=== PATIENT | male | born 1955 | race Caucasian/White ===

== ENCOUNTER 2016-12-11 11:12 | Day surgery (SDC) | payer OTHER ==
[2016-12-11] MEDS ORDERED: LACTATED RINGERS 1,000 ML IV ONE (11:23)
[2016-12-11] MEDS ORDERED: MIDAZOLAM 2 MG/2 ML VIAL IVP ONE (13:00)
[2016-12-11] MEDS ORDERED: fentaNYL 100 MCG/2 ML VIAL IVP ONE (13:00)
[2016-12-11 13:41] VITALS: BP 122/67
--- NOTE | 2016-12-11 14:05 | PROCEDURE REPORT ---
DATE OF PROCEDURE: 12/11/2016 00:00:00 PROCEDURE PERFORMED: Colonoscopy with biopsy and snare. ENDOSCOPIST: Cathryn Bautista MD PRIMARY CARE: [facility]. INDICATION: History of colon polyps. PREMEDICATION: Fentanyl 100 mcg, Versed 5 mg IV titration. DESCRIPTION OF PROCEDURE: After informed consent was obtained, the patient was placed in the left lat eral decubitus position. The video colonoscope was introduced in the rectum and slowly advanced to th e cecum. On slow withdrawal, mucosa was carefully examined. Preparation was good. The scope was remov ed. The patient tolerated the procedure well. BLOOD LOSS: None. COMPLICATIONS: None. FINDINGS 1. A 5 mm sigmoid polyp, jumbo biopsied and removed completely. 2. An 8 mm rectal polyp, snared and removed completely. 3. Scattered sigmoid diverticulosis. 4. Otherwise negative colonoscopy to cecum. The patient will be contacted with biopsy results but will need followup colonoscopy in 5 years. JOB #: [id number] EXT JOB #:[id number]
== END 2016-12-11 11:13 | disposition home or self-care (01) ==
LOC: SDS 11:12
PROVIDERS: ATTEND Internal Medicine Gastroenterology
PROC: 0DBP8ZX Excision of Rectum, Via Natural or Artificial Opening Endoscopic, Diagnostic (ICD-10-PCS; 2016-12-11)
PROC: 0DBN8ZX Excision of Sigmoid Colon, Via Natural or Artificial Opening Endoscopic, Diagnostic (ICD-10-PCS; principal; 2016-12-11 12:30)
DX: K62.1 Rectal polyp (principal); K63.5 Polyp of colon; K57.90 Diverticulosis of intestine, part unspecified, without perforation or abscess without bleeding; E78.00 Pure hypercholesterolemia, unspecified; K21.9 Gastro-esophageal reflux disease without esophagitis
CPT/HCPCS: 45380; 45385; 88305; J7120

== ENCOUNTER 2017-06-30 09:42 | Day surgery (SDC) | payer OTHER ==
[~2017-06-30 09:42] MED LIST: DEXAMETHASONE 4 MG/ML VIAL IVP ONE; GLYCOPYRROLATE 1 MG/5 ML VIAL IVP ONE; KETOROLAC 30 MG/ML VIAL IVP ONE; LIDOCAINE-MPF 2% 5 ML VIAL IM ONE; MIDAZOLAM 2 MG/2 ML VIAL IVP ONE; NEOSTIGMINE 1 MG/1 ML 10 ML MDV IVP ONE; ONDANSETRON 4 MG/2 ML VIAL IVP ONE; PHENYLEPHRINE 50 MG/5 ML VIAL IV ONE; PROPOFOL 200 MG/20 ML VIAL IVP ONE; ROCURONIUM 50 MG/5 ML VIAL IVP ONE; SUCCINYLCHOLINE 200 MG/10 ML VIAL IVP ONE; ceFAZolin 2 GM/50 ML 2 GM/50 ML BAG IV ONE; ePHEDrine 50 MG/ML VIAL IVP ONE; fentaNYL 250 MCG/5 ML VIAL IVP ONE
[2017-06-30] MEDS ORDERED: BUPIVACAINE 0.5%-EPI 1:200000 PF 10 ML VIAL ONE ×2 (10:12→11:00)
[2017-06-30] MEDS ORDERED: LACTATED RINGERS 1,000 ML IV ONE ×2 (10:38→12:40)
[2017-06-30] MEDS ORDERED: BUPIVACAINE 0.5%-EPI 1:200000 PF 30 ML VIAL SUBQ ONE (11:26)
--- NOTE | 2017-06-30 12:13 | OPERATIVE REPORT ---
Operative Report - General Procedure Date: 06/30/17 Pre-Op Diagnosis: BIliary colic Procedure Performed: Laparoscopic Cholecystectomy - Procedure Note Primary Surgeon: Oj Anesthesia Provider: Gm Samayoa Anesthesia Technique: General ET tube Estimated Blood Loss (mL): 5 - Other Other Information/Narrative: Procedure Performed: Laparoscopic cholecystectomy, TAP block Preoperative diagnosis: Biliary Colic Postoperative diagnosis: Biliary Colic Indication for procedure: This is a 65 year old presenting with signs and symptoms consistent with acute cholecystitis. Anesthesia: General Surgeon: Dr. Mcwilliams Findings: After obtaining informed consent the patient was brought into the operating room and positioned on the operating table in the supine position taking noted pressure points. The patient was intubated by anesthesia. Perioperative antibiotics were administered. The patient was then prepped and draped in the usual sterile fashion and a timeout was taken according to protocol. An infraumbilical 1 cm incision was created and deepened down to the umbilical stalk. The stalk was grasped and elevated and the veres needle inserted. The abdominal cavity was insufflated. A 5 mm incision was created in the patient's epigastric region to the right of the midline. Using a 5 mm Optiview trocar the abdominal cavity was entered. The Veress needle was removed and exchanged for a 12 mm port. 2 additional 5 mm ports were then placed along the patient's right lateral abdominal wall. The gallbladder was grasped and retracted over the dome of the liver. The gallbladder was noted to be adherent to the underlying omentum and duodenum. These structures were carefully dissected off the gallbladder with blunt dissection. The fundus of the gallbladder was grasped and retracted medially exposing the lateral attachments. The lateral attachments were carefully taken down working my way laterally to medially exposing the cystic duct. The cystic duct was circumferentially dissected free from surrounding fatty tissue. The cystic artery was similarly dissected out. The base of the gallbladder was dissected off of the liver bed and the critical view was obtained. The cystic duct was clipped with 2 clips placed proximally 1 distally and divided. The cystic artery was divided in a similar manner. The gallbladder was then removed from the gallbladder fossa with electrocautery. There was no spillage of bile and stones during the process of gallbladder removal. The gallbladder fossa was inspected for any signs of bleeding and none were noted. The gallbladder was then placed in a specimen bag and removed. The fascial incision was extended slightly with a blunt clamp to accommodate the gallbladder. 40 cc of marcaine was then injected at the costal margin intraperitoneally performing a TAP block. The abdominal cavity was then allowed to desufflate and all trochars were removed. The umbilical incision was then closed with a [id number] 0 Vicryl suture. An additional 20 cc of marcaine was injected in the skin incisions. The skin incisions were closed with 4-0 Monocryl. The patient was subsequently extubated and taken to the recovery room in stable condition. Estimated blood loss: Minimal Complications: None Specimen: Gallbladder
[2017-06-30] MEDS ORDERED: oxyCOD/ACETAMIN 5 MG/325 MG TABLET PO ONE (13:23)
[2017-06-30 13:56] VITALS: BP 130/79
== END 2017-06-30 09:43 | disposition home or self-care (01) ==
LOC: SDS 09:42
PROVIDERS: ATTEND Surgery
PROC: 0FT44ZZ Resection of Gallbladder, Percutaneous Endoscopic Approach (ICD-10-PCS; principal; 2017-06-30 10:45)
DX: K80.20 Calculus of gallbladder without cholecystitis without obstruction (principal); I10 Essential (primary) hypertension; K21.9 Gastro-esophageal reflux disease without esophagitis; Z87.891 Personal history of nicotine dependence
CPT/HCPCS: 47562; A9270; J0330; J0690; J3010; J7120

== ENCOUNTER 2020-03-03 14:07 | Outpatient (CLI) | payer MEDICARE, OTHER ==
--- NOTE | 2020-03-03 15:40 | Ultrasound Report ---
PROCEDURE: Aorta Screening INDICATIONS: HX SMOKING, AO SCREENING TECHNIQUE: Real time scanning was performed of the aorta and iliac arteries, with image documentatio n. COMPARISON: None FINDINGS: Aorta: Proximal aortic diameter measures 2.9 cm. Mid-aorta measures 2.2 x 2.4 cm. Distal aortic di ameter is 2 x 2.2 cm. Mild to moderate amount of atherosclerotic plaques are seen. Iliac arteries: Right common iliac artery measures 1 x 1.2 cm. Left common iliac artery measures 1. 2 x 1.5 cm. IMPRESSION: No abdominal aortic aneurysm. Mild to moderate atherosclerotic disease. Reviewed by: Femi Lagunas MD on 03/03/2020 3:38 PM PST Approved by: Femi Lagunas MD on 03/03/2020 3:38 PM PST Station ID: [id number]
--- NOTE | 2020-03-03 15:46 | CT Report ---
PROCEDURE: Low Dose Lung Cancer Screen INDICATIONS: PERSONAL HISTORY OF NICOTINE DEPENDENCE TECHNIQUE: Noncontrast low-dose 5 mm thick sections acquired from the pulmonary apices to the posterior costophr enic angles. 7 mm thick coronal and sagittal MIP reformats were then acquired. For radiation dose r eduction, the following was used: automated exposure control, adjustment of mA and/or kV according t o patient size. COMPARISON: None. FINDINGS: Image quality: Excellent. Lungs and pleura: No suspicious pulmonary nodule or mass. No focal consolidation or pleural abnormal ity. Mediastinum: Heart size is normal. No pericardial effusion. No mediastinal adenopathy by size crit eria. Thoracic aorta and central pulmonary arteries are normal in size. Esophagus is normal in lizeth charlie. No hiatal hernia. Bones and chest wall: No suspicious bony lesions. No vertebral body compression fractures. No axil carola or supraclavicular adenopathy by size criteria. The thyroid is normal in size. Abdomen: Right upper pole renal cysts. IMPRESSION: No suspicious pulmonary nodule or mass. Lung-RADS category 1. Continued annual low-dose screening CT of the chest recommended. Right upper pole renal cysts, partially visualized and incompletely characterized in the absence of I V contrast. Consider a renal ultrasound to further evaluate. Reviewed by: Jorge Pearl MD on 03/03/2020 3:44 PM PST Approved by: Jorge Pearl MD on 03/03/2020 3:44 PM PST Station ID: [id number]
== END 2020-03-03 14:08 | disposition home or self-care (01) ==
LOC: DI 14:07
DX: Z12.2 Encounter for screening for malignant neoplasm of respiratory organs (principal); Z13.6 Encounter for screening for cardiovascular disorders; N28.1 Cyst of kidney, acquired; I70.0 Atherosclerosis of aorta; Z87.891 Personal history of nicotine dependence
CPT/HCPCS: 76706; G0297